=== PATIENT | male | born 1955 | race Caucasian/White ===

== ENCOUNTER 2020-12-19 23:42 | Emergency (ER) | payer MEDICAID ==
[~2020-12-19] VITALS: Ht 172.7 cm; Wt 63.6 kg
[2020-12-20 00:18] LABS: D-DIMER 0.31 MG/L FEU (0-0.50)
[2020-12-20 00:21] LABS: BASOPHILS % (AUTO) 0.9 % (0-1); EOSINOPHILS # (AUTO) 0.1 X10'3 (0-0.9); EOSINOPHILS % (AUTO) 2.6 % (0-6); HEMATOCRIT 38.1 % (42.0-52.0); HEMOGLOBIN 13.2 g/dl (14.0-17.9); LYMPHOCYTES # (AUTO) 1.1 X10'3 (1.1-4.8); LYMPHOCYTES % (AUTO) 23.2 % (21-51); MEAN CORPUSCULAR HEMOGLOBIN 34.6 PG (27.0-31.0); MEAN CORPUSCULAR HGB CONC 34.7 g/dL (33.0-36.5); MEAN CORPUSCULAR VOLUME 99.7 FL (78-98); MEAN PLATELET VOLUME 9.5 FL (7.4-10.4); MONOCYTES # (AUTO) 0.4 X10'3 (0-0.9); MONOCYTES % (AUTO) 9.1 % (2-12); NEUTROPHILS # (AUTO) 3.1 X10'3 (1.8-7.7); NEUTROPHILS % (AUTO) 64.2 % (42-75); PLATELET COUNT 203 X10'3 (140-440); RED BLOOD COUNT 3.83 X10'6 (4.70-6.10); RED CELL DISTRIBUTION WIDTH 13.2 % (11.5-14.5); WHITE BLOOD COUNT 4.8 X10'3 (4.5-11.0)
[2020-12-20 00:22] LABS: ALANINE AMINOTRANSFERASE 29 U/L (12-78); ALBUMIN 4.1 G/DL (3.4-5.0); ALBUMIN/GLOBULIN RATIO 1.2 (1.1-1.5); ALKALINE PHOSPHATASE 98 IU/L (46-116); ANION GAP 11 (8-16); ASPARTATE AMINO TRANSFERASE 16 U/L (10-37); BILIRUBIN,TOTAL 0.5 MG/DL (0.1-1.0); BLOOD UREA NITROGEN 25 MG/DL (7-18); BUN/CREATININE RATIO 24.3 (5.4-32.0); CALCIUM 8.9 MG/DL (8.5-10.1); CHLORIDE 108 MMOL/L (99-107); CREATININE 1.03 MG/DL (0.60-1.10); GLUCOSE 113 MG/DL (70-104); POTASSIUM 3.8 MMOL/L (3.5-5.1); SODIUM 144 MMOL/L (135-145); TOTAL PROTEIN 7.5 G/DL (6.4-8.2); eGFR 72 ML/MIN
--- NOTE | 2020-12-20 00:29 | NUR ---
PT HITTING WALL ATTEMPTING TO GET RN ATTENTION FOR URINAL. URINAL WAS WITHIN REACH ON BEDSIDE TABLE. PT INSTRUCTED THAT HITTING KONG IS A BEHAVIOR THAT IS NOT TOLERATED. PT THREATENED TO LEAVE. EDUCATED PT ON PATIENT RIGHTS OF CARE IN ER AND THE RIGHT TO REFUSE CARE IF WANTED. PT DECIDED TO STAY
[2020-12-20] MEDS ORDERED: iohexol 300mg/ml 100ml inj. ONE (00:35)
--- NOTE | 2020-12-20 00:41 | NUR ---
TO CT IN WHEELCHAIR WITH WOOD HEEL FITTER MACHINE
[2020-12-20] MEDS ORDERED: AMLO5TAB4 PO (01:33)
[2020-12-20] MEDS ORDERED: LISI10TA4 PO (01:33)
[2020-12-20] MEDS ORDERED: ALBU8HFA PO (01:34)
[2020-12-20] MEDS ORDERED: PRED20TA PO (01:34)
[2020-12-20 01:51] VITALS: BP 173/90
== END 2020-12-20 01:57 | disposition home or self-care (01) ==
LOC: ER 23:42
DX: R07.89 Other chest pain (principal); Z20.822 Contact with and (suspected) exposure to COVID-19; R06.02 Shortness of breath; I10 Essential (primary) hypertension; F12.90 Cannabis use, unspecified, uncomplicated; Z79.899 Other long term (current) drug therapy; Z59.0 Homelessness
CPT/HCPCS: 36415; 71045; 71260; 80053; 83880; 84484; 85025; 85379; 87635; 93005; 99285; Q9967

== ENCOUNTER 2022-07-19 10:25 | Emergency (ER) | payer MEDICARE, MEDICAID ==
[~2022-07-19] VITALS: Ht 172.7 cm; Wt 61.4 kg
[~2022-07-19 10:25] MED LIST: AMLO5TAB4 PO; LISI10TA27 PO
[2022-07-19 10:26] VITALS: BP 166/103
--- NOTE | 2022-07-19 10:37 | NUR ---
called alan. report previously filed prior to pt arrival.
--- NOTE | 2022-07-19 10:41 | NUR ---
[employer] officer at bedside
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
== END 2022-07-19 11:24 | disposition left against medical advice (07) ==
LOC: ER 10:25
DX: S51.812A Laceration without foreign body of left forearm, initial encounter (principal); I10 Essential (primary) hypertension; F12.10 Cannabis abuse, uncomplicated; Z79.899 Other long term (current) drug therapy; Y04.0XXA Assault by unarmed brawl or fight, initial encounter; Y93.89 Activity, other specified; Y92.89 Other specified places as the place of occurrence of the external cause; Y99.8 Other external cause status
CPT/HCPCS: 99284